=== PATIENT | female | born 1940 | race Caucasian/White ===

== ENCOUNTER → 2016-08-28 10:51 | Outpatient (CLI) | payer MEDICARE, OTHER | END | disposition home or self-care (01) | LOC: D.RAD 10:51 | DX: K59.00 Constipation, unspecified (principal) ==

== ENCOUNTER → 2016-11-29 07:49 | Outpatient (CLI) | payer MEDICARE, OTHER | END | disposition home or self-care (01) | LOC: D.RAD 07:49 | DX: K57.30 Diverticulosis of large intestine without perforation or abscess without bleeding (principal); K64.1 Second degree hemorrhoids; K59.09 Other constipation; K57.92 Diverticulitis of intestine, part unspecified, without perforation or abscess without bleeding ==

== ENCOUNTER 2017-01-05 09:00 | Observation (INO) | payer MEDICARE, OTHER ==
[~2017-01-05] VITALS: Ht 170.2 cm; Wt 81.9 kg
[2017-01-05] MEDS ORDERED: CRESTOR5 MG PO (09:53)
[2017-01-05] MEDS ORDERED: LEVOXYL100 MCG PO (09:54)
[2017-01-05] MEDS ORDERED: ZESTORETIC 20-1 EACH PO (09:54)
[2017-01-05] MEDS ORDERED: VOLTAREN75 MG PO (09:55)
[2017-01-05] MEDS ORDERED: LASIX40 MG (09:56)
[2017-01-05] MEDS ORDERED: ULTRAM50 MG PO (09:57)
--- NOTE | 2017-01-05 09:59 | NUR ---
RECIEVED FROM DRS OFFICE, ALERT AND ORIENTED. DENIES ANY PAIN. FACE SWOLLEN FROM CHEEKS DOWN TO CHIN. NO REDDNESS. TELEMERTY SHOWS SR. SR UP WITH CALL LIGHT UP. WILL MONITITOR.
[2017-01-05 10:10] LABS: BASOPHILS 0.2 % (0-2); EOSINOPHILS 3.5 % (0-7); HEMATOCRIT 41.1 % (36.0-48.0); HEMOGLOBIN 14.3 g/dL (12-16); IMMATURE GRANULOCYTES 0.3 % (0-5); LYMPHOCYTES 12.7 % (15-50); MCH 30.6 pg (26.0-34.0); MCHC 34.8 g/dL (31.0-37.0); MEAN PLATELET VOLUME 9.8 fL (7.4-10.4); MONOCYTES 10.7 % (2-11); NEUTROPHILS 72.6 % (40-80); PLATELET COUNT 195 10x3/uL (130-400); RBC 4.67 10x6/uL (4.00-5.40); RDW 12.9 % (11.5-14.5); WBC 11.7 10x3/uL (4.8-10.8)
[2017-01-05 10:12] VITALS: BP 148/83; Ht 170.2 cm; Wt 81.9 kg
[2017-01-05 10:28] LABS: ANION GAP 13.7 mmol/L (8-16); CALCIUM 9.2 mg/dL (8.5-10.1); CARBON DIOXIDE 25.8 mmol/L (21.0-32.0); CREATININE - SERUM 1.3 mg/dL (0.6-1.3); POTASSIUM - SERUM 3.5 mmol/L (3.5-5.1)
--- NOTE | 2017-01-05 12:45 | NUR ---
DENIES ANY FUTHER RASH. CALL LIGHT IN REACH WITH SR UP. FACE STILL SWOLLEN.
[2017-01-05 15:28] VITALS: BP 124/67
--- NOTE | 2017-01-05 15:42 | NUR ---
HOB ELEVATED. NO RESP DIFFICULTY. FACE SWOLLEN WILL CONTINUE TO MONITOR.
--- NOTE | 2017-01-05 18:42 | NUR ---
LYING QUIETLY. STILL SOME SWELLING TO FACE. DENIES ANY NEEDS. CALL LIGHT IN REACH WITH SR UP
[2017-01-05 19:00] VITALS: BP 142/71
--- NOTE | 2017-01-05 21:51 | NUR ---
HS MEDS GIVEN WITH FRESH ICE WATER, PT DENIES PAIN OR NEEDS, BED LOW, CL IN REACH.
[2017-01-06] VITALS: BP 171/89
--- NOTE | 2017-01-06 01:30 | NUR ---
TYLENOL 2 TABS GIVEN AT PT REQUEST FOR C/O HEADACHE. RATES PAIN AT A 6 ON PAIN SCALE.
[2017-01-06 04:00] VITALS: BP 149/70
--- NOTE | 2017-01-06 08:02 | NUR ---
ASSESSMENT DONE. DENIES NEEDS.
[2017-01-06 08:04] VITALS: BP 154/73
--- NOTE | 2017-01-06 08:05 | NUR ---
RESTS IN BED WITH CALL LIGHT IN REACH. IV PATENT. CALL LIGHT IN REACH. WILL CONT. PLAN OF CARE.
[2017-01-06] MEDS ORDERED: NORVASC2.5 MG PO (09:58)
[2017-01-06] MEDS ORDERED: MEDROL DOSE PACK4 MG PO (09:59)
--- NOTE | 2017-01-06 12:50 | NUR ---
DC GIVEN TO PT
--- NOTE | 2017-01-06 12:54 | NUR ---
DC HOME PER PERSONAL CAR
== END 2017-01-06 12:54 | disposition home or self-care (01) ==
LOC: D.SDCHOLD 09:00 → OBSVTIME 09:01 → D.M2 09:07
PROVIDERS: ADMIT Family Medicine
DX: T78.3XXA Angioneurotic edema, initial encounter (principal); T36.3X5A Adverse effect of macrolides, initial encounter; I10 Essential (primary) hypertension